=== PATIENT | female | born 1985 | race Caucasian/White ===

== ENCOUNTER 2017-09-27 18:17 | Emergency (ER) | payer MEDICAID ==
[~2017-09-27] VITALS: Ht 160 cm; Wt 75.3 kg
[2017-09-27 18:37] VITALS: BP 120/50
[2017-09-27] MEDS ORDERED: BETA15CR4 TP (19:30)
[2017-09-27] MEDS ORDERED: HYDR-565 PO (19:36)
== END 2017-09-27 19:46 | disposition home or self-care (01) ==
LOC: ER 18:17
DX: L40.1 Generalized pustular psoriasis (principal); J45.909 Unspecified asthma, uncomplicated; F17.200 Nicotine dependence, unspecified, uncomplicated
CPT/HCPCS: 99283